=== PATIENT | female | born 1995 | race Caucasian/White ===

== ENCOUNTER 2017-05-26 12:10 | Inpatient (IN) | payer MEDICAID ==
[~2017-05-26] VITALS: Ht 165.1 cm; Wt 67.1 kg
[2017-05-26 13:26] VITALS: Ht 165.1 cm; Wt 67.1 kg
[2017-05-26 13:27] VITALS: BP 126/73; PULSE 77; RESP 18
[2017-05-26] MEDS ORDERED: FER325 PO (15:02)
[2017-05-26] MEDS ORDERED: PRENAT PO (15:02)
--- NOTE | 2017-05-26 16:13 | TRIAGE ---
OB Triage Datetime Report Generated by CPN: 05/26/2017 16:13 Datetime: 05/26/2017 15:55 Stage of : OB Triage Labor Evaluation Frequency: 7-9 Monitor Mode: External Duration (sec)2399: 70 Quality: Mild Pattern: Normal: <= 5 Contractions in 10 Minutes Resting Tone [place]: Relaxed Heart Rate FHR Baseline Rate: 140 Monitor Mode: External US Variability: Moderate 6-25 bpm Accelerations: 15X15 Decelerations: None Category: Category I Pain Assessment Pain Scale: 3 Pain Presence: Intermittent Pain Type: Contraction Pain Location: Abdomen Pain Goal: 4 Pain Relief Measures: Comfort Measures Membrane Status: Intact Datetime: 05/26/2017 15:05 Stage of : OB Triage Labor Evaluation Frequency: 7-9 Monitor Mode: External Duration (sec)2399: 70 Quality: Mild Pattern: Normal: <= 5 Contractions in 10 Minutes Resting Tone [place]: Relaxed Heart Rate FHR Baseline Rate: 135 Monitor Mode: External US Variability: Moderate 6-25 bpm Accelerations: 15X15 Decelerations: None Category: Category I Pain Assessment Pain Scale: 3 Pain Presence: Intermittent Pain Type: Contraction Pain Location: Abdomen Pain Goal: 4 Pain Relief Measures: Comfort Measures (Annotations: FAMILY X 2) Vaginal Exam Dilatation (cms): 3.0 Effacement (%): 100 Station: -1 Exam By: Joanie QUINONES RN Membrane Status: Intact Vaginal Bleeding: Normal Show Cervix, Consistency: Soft Cervix, Position: Posterior Lie 'A': Longitudinal Datetime: 05/26/2017 13:12 Labor Evaluation Frequency: 9-12 Monitor Mode: External Duration (sec)2399: 60-70 Quality: Mild Pattern: Normal: <= 5 Contractions in 10 Minutes Resting Tone [place]: Relaxed Heart Rate FHR Baseline Rate: 135 Monitor Mode: External US Variability: Moderate 6-25 bpm Accelerations: 15X15 Decelerations: None Category: Category I Pain Assessment Pain Scale: 3 Pain Presence: Intermittent Pain Type: Contraction Pain Location: Abdomen Pain Goal: 4 Membrane Status: Intact Datetime: 05/26/2017 12:54 Stage of : OB Triage Maternal Assessment Level of Consciousness: Fully Conscious Labor Evaluation Frequency: 5-10 Monitor Mode: External Duration (sec)2399: 40-70 Quality: Mild Pattern: Normal: <= 5 Contractions in 10 Minutes Resting Tone [place]: Relaxed Heart Rate FHR Baseline Rate: 145 Monitor Mode: External US Variability: Moderate 6-25 bpm Accelerations: 15X15 Decelerations: None Pain Assessment Pain Scale: 3 Pain Presence: Intermittent Pain Type: Contraction Pain Location: Abdomen Pain Goal: 4 Pain Relief Measures: Comfort Measures Membrane Status: Intact Datetime: 05/26/2017 12:34 Stage of : OB Triage Maternal Assessment Level of Consciousness: Fully Conscious DTR's/Clonus: DTRs 2+ Temperature Route: Oral Labor Evaluation Frequency: 8 Monitor Mode: External Duration (sec)2399: 70 Quality: Mild Pattern: Normal: <= 5 Contractions in 10 Minutes Resting Tone [place]: Relaxed Heart Rate FHR Baseline Rate: 140 Monitor Mode: External US Variability: Moderate 6-25 bpm Accelerations: None Decelerations: None Pain Assessment Pain Scale: 3 Pain Presence: Intermittent Pain Type: Contraction Pain Location: Abdomen Pain Goal: 4 Pain Relief Measures: Comfort Measures Vaginal Exam Dilatation (cms): 2.5 Effacement (%): 100 Station: -1 Exam By: Joanie QUINONES RN Membrane Status: Intact Cervix, Consistency: Soft Cervix, Position: Posterior Lie 'A': Longitudinal Datetime: 05/26/2017 12:33 Time of Arrival: 05/26/2017 16:00 EGA: 39.2 Arrived By: Ambulatory Arrived From: Other Unit in Hospital Datetime: 05/26/2017 12:30 Maternal Assessment Level of Consciousness: Fully Conscious DTR's/Clonus: DTRs 2+; No Clonus Headache: Denies Blurred Vision: No Respiratory Effort: Unlabored; Regular Rhythm; Equal Expansion Breath Sounds, Left: Clear and Equal Breath Sounds, Right: Clear and Equal Nausea/Vomiting: Denies RUQ Epigastric Pain: Denies Lower Extremities Edema: None Degree: None Upper Extremities Edema: None Degree: None Facial Edema: None Fall Risk Assessment History of Falling: (0) No Secondary Diagnosis: (0) No Ambulatory Aid: (0) Bedrest/Nurse Assist IV Therapy: (0) No Gait: (0) Normal/Bedrest/Immobile Mental Status: (0) Oriented to Own Ability Fall Score: 0 Fall Risk Score Definition: No Risk: No action required Datetime: 05/26/2017 12:20 Time of Arrival: 05/26/2017 12:10 Arrived By: Ambulatory Arrived From: Home Chief Complaint: IRREGULAR UCS YESTERDAY WHICH BECAME REGULAR AT 0800 TODAY Movement: Present Contractions: Regular Time Contractions Began: 05/26/2017 08:00 Contractions: 5-10 Rupture of Membranes: Denies Vaginal Bleeding: None Vaginal Discharge: Denies Recent Sexual Intercouse: Denies Abdominal Trauma: Not Applicable Patient Complaints: Contractions Initial Plan: LABOR ASSESSMENT Heart Rate FHR Baseline Rate: 145 Monitor Mode: External US Variability: Moderate 6-25 bpm Accelerations: None Decelerations: None Datetime: 05/26/2017 12:18 Monitor Mode: External Monitor Mode: External US Datetime: 05/26/2017 12:13 Stage of : OB Triage
[2017-05-26] MEDS ORDERED: METHYLERGONOVINE 0.2 MG INJ IM PRN (16:30)
[2017-05-26] MEDS ORDERED: LIDOCAINE 1% (MPF) 30 ML INJ INJ PRN (16:30)
[2017-05-26] MEDS ORDERED: BUTORPHANOL 2 MG INJ IV PRN (16:30)
[2017-05-26] MEDS ORDERED: MISOPROSTOL 200 MCG TAB PR PRN (16:30)
[2017-05-26] MEDS ORDERED: OXYTOCIN 30 UNITS/LR 500 ML IV PRN (16:30)
[2017-05-26] MEDS ORDERED: CARBOPROST 250 MCG INJ IM PRN (16:30)
[2017-05-26] MEDS ORDERED: OXYTOCIN 30 UNITS/LR 500 ML IV SCH (16:30)
[2017-05-26] MEDS: LACTATED RINGER'S 1,000 ML IV SCH (16:35)
[2017-05-26 16:51] LABS: BASOPHILS % 0.2 % (0.0-2.0); EOSINOPHILS # 0.1 10^3/ul (0.0-0.5); EOSINOPHILS % 0.6 % (0.0-7.0); HEMATOCRIT 37.3 % (37.0-47.0); HEMOGLOBIN 12.7 g/dl (12.0-16.0); MEAN CORPUSCULAR HEMOGLOBIN 29.7 pg (29.0-33.0); MEAN CORPUSCULAR VOLUME 87.1 fl (72.0-104.0); MEAN PLATELET VOLUME 11.8 fl (7.4-10.4); MONOCYTE # 0.6 10^3/ul (0.3-0.9); MONOCYTES % 4.6 % (0.0-13.0); NEUTROPHIL # 9.5 10^3/ul (1.6-7.5); NEUTROPHILS % 77.9 % (30.0-74.0); PLATELET COUNT 195 10^3/UL (140-415); RED BLOOD COUNT 4.28 10^6/ul (4.20-5.40); RED CELL DISTRIBUTION WIDTH 13.4 % (11.5-14.5); WHITE BLOOD COUNT 12.2 10^3/ul (4.8-10.8)
[2017-05-26 17:07] LABS: INR 0.88; PROTIME 11.9 Sec (12.2-14.2); PT RATIO 0.9
[2017-05-26 17:08] LABS: PARTIAL THROMBOPLASTIN TIME 27.9 Sec (25.0-35.0)
[2017-05-26] MEDS ORDERED: LACTATED RINGER'S 1,000 ML IV ONE (19:05)
[2017-05-26] MEDS ORDERED: DIPHENHYDRAMINE 50 MG INJ IV PRN (19:30)
[2017-05-26] MEDS ORDERED: ONDANSETRON 4 MG INJ IV PRN (19:30)
[2017-05-26] MEDS ORDERED: NALOXONE (0.4 MG/ML) INJ IV PRN (19:30)
[2017-05-26] MEDS ORDERED: ONDANSETRON 4 MG INJ IV ONE (19:30)
[2017-05-26] MEDS ORDERED: morphine 4 MG/ML VIAL IV PRN (19:30)
[2017-05-26] MEDS ORDERED: CITRIC ACID/NA CITRATE 30 ML CUP PO ONE (19:30)
[2017-05-26] MEDS ORDERED: morphine 2 MG INJ IV PRN (19:30)
[2017-05-26] MEDS ORDERED: NALBUPHINE HCL (10 MG/1 ML) INJ IV PRN (19:30)
[2017-05-26] MEDS ORDERED: KETOROLAC 30 MG INJ IV PRN (19:30)
[2017-05-26] MEDS ORDERED: TRIMETHOBENZAMIDE 100 MG/ML VIAL IM PRN (19:30)
[2017-05-26] MEDS ORDERED: LACTATED RINGER'S 1,000 ML IV PRN (20:00)
[2017-05-27] MEDS: FENTAnyl 2MCG/ML-ROPIV 0.2% 100 ML BAG EPI SCH ×2 (02:33→07:40)
[2017-05-27] MEDS: LACTATED RINGER'S 1,000 ML IV SCH (03:05)
[2017-05-27] MEDS: OXYTOCIN 30 UNITS/LR 500 ML IV SCH ×4 (09:55→17:17)
--- NOTE | 2017-05-27 11:34 | DELSUM ---
Delivery Summary A-C Datetime Report Generated by CPN: 05/27/2017 11:33 DELIVERY PERSONNEL Control Inspector: Erin Carter MATERNAL INFORMATION Delivery Anesthesia: Epidural Medications in Delivery: 30 UNITS PITOCIN IN 500 ML LR Estimated Blood Loss (ml): 300 Placenta Cultured: No Maternal Complications: None LABOR SUMMARY EDC: 05/31/2017 00:00 No. Babies in Womb: 1 Attempted: No Labor Anesthesia: Epidural LABOR INFORMATION Reason for Induction: Not Applicable Onset of Labor: 05/26/2017 15:05 Complete Dilatation: 05/27/2017 07:30 Oxytocin: N/A Group B Beta Strep: Negative Antibiotics # of Doses: 0 Steroids Given: None Reason Steroids Not Administered: Not Applicable MEMBRANES Membranes Rupture Method: Spontaneous Rupture of Membranes: 05/27/2017 02:21 Length of Rupture (hr): 7.58 Amniotic Fluid Color: Clear Amniotic Fluid Amount: Moderate Amniotic Fluid Odor: None STAGES OF LABOR Stage 1 hr: 16 Stage 1 min: 25 Stage 2 hr: 2 Stage 2 min: 26 Stage 3 hr: 0 Stage 3 min: 4 Total Time in Labor hr: 18 Total Time in Labor min: 55 VAGINAL DELIVERY Episiotomy: None Laceration Extension: First Degree Laceration Type: Vaginal Laceration Repair: Yes Initial Vag Sponge Count: 10 Final Vag Sponge Count: 10 Initial Vag Sharps Count: 2 Final Vag Sharps Count: 2 Sponge Count Correct: Yes Sharps Count Correct: Yes BABY A INFORMATION Delivery Date/Time: 05/27/2017 09:56 Method of Delivery: Vaginal Born in Route : No : N/A Forceps: N/A Vacuum Extraction: N/A Shoulder Dystocia : N/A SHOULDER DYSTOCIA BABY A Infant Delivery Date/Time: 05/27/2017 09:56 PRESENTATION/POSITION BABY A Presentation: Cephalic Cephalic Presentation: Vertex Vertex Position: Left Occipital Anterior Breech Presentation: N/A PLACENTA INFORMATION BABY A Placenta Delivery Time : 05/27/2017 10:00 Placenta Method of Delivery: Spontaneous Placenta Status: Delivered SCORES BABY A Heart Rate 1 min: >100 bpm Resp Effort 1 min: Good Cry Reflex Irritability 1 min: Cough/Sneeze/Pulls Away Muscle Tone 1 min: Active Motion Color 1 min: Body [place], Extremit Blue Resuscitation Effort 1 min: Tactile Stimulation SCORE 1 MIN: 9 Heart Rate 5 min: >100 bpm Resp Effort 5 min: Good Cry Reflex Irritability 5 min: Cough/Sneeze/Pulls Away Muscle Tone 5 min: Active Motion Color 5 min: Body [place], Extremit Blue Resuscitation Effort 5 min: Tactile Stimulation SCORE 5 MIN: 9 INFANT INFORMATION BABY A Gestational Age at Delivery: 39.3 Gestational Status: Full Term- 39- 40.6 Weeks Infant Outcome : Liveborn Infant Condition : Stable Sex: Female IDENTIFICATION/MEDS BABY A ID Band Number: [id number] ID Band Location: Right Leg; Left Arm Sensor Applied: Yes Sensor Number: [id number] Sensor Location : Cord Clamp Vitamin K Given : Not Given Erythromycin Given: Not Given WEIGHT/LENGTH BABY A Birthweight (gm): 2070 Weight (lb): 4 Weight (oz): 9 Infant Length (in): 20.00 Infant Length (cm): 50.80 CORD INFORMATION BABY A No. Cord Vessels: 3 Nuchal Cord : Around Neck x1, Loose Cord Blood Taken: Yes Suction: Mouth; Nose ASSESSMENT BABY A Infant Complications: None Physical Findings at Delivery: Within Normal Limits Respirations: Appears Normal Concrete Hopper Operator/ALS Called : No Transferred To: Remains with Mother
--- NOTE | 2017-05-27 11:39 | LDN ---
Date/Time of Note Date/Time of Note DATE: 05/27/17 TIME: 11:37 Delivery Summary pt pushed and head delivered. tight CAN and cut over perineum. infant then delivered without any complications Placenta Delivered: Spontaneously Meconium: none Laceration repair: vaginal primary with chromic suture Anesthesia type: Epidural Estimated blood loss: 300 Sponge & Needle done & correct: Yes All needle counts correct: Yes Any foreign bodies felt in the: No Problems: Infant Delivery Information Suctioning Nose & mouth suctioned at umu: Yes Delee suction performed: Yes Umbilical Cord Umbilical cord with: 3 Vessels Cord presentations: nuchal cord Nuchal cord present X: 1 Cord Blood was obtained: Yes STEFFANY DIAZ MD May 27, 2017 11:39
[2017-05-27 11:50] VITALS: BP 120/65; PULSE 70; RESP 16
[2017-05-27] MEDS: LACTATED RINGER'S 1,000 ML IV* SCH ×2 (13:17→21:17)
[2017-05-27] MEDS ORDERED: ACETAMINOPHEN 325 MG TAB PO PRN (13:30)
[2017-05-27] MEDS ORDERED: DIBUCAINE 1% 30 GM OINT TOP PRN (13:30)
[2017-05-27] MEDS ORDERED: METHYLERGONOVINE 0.2 MG INJ IM PRN (13:30)
[2017-05-27] MEDS ORDERED: WITCH HAZEL/GLYCERIN PAD PR PRN (13:30)
[2017-05-27] MEDS ORDERED: LANOLIN 7 GM TUBE TOP PRN (13:30)
[2017-05-27] MEDS ORDERED: BENZOCAINE 20% 56 ML SPRAY TOP PRN (13:30)
[2017-05-27] MEDS ORDERED: MISOPROSTOL 200 MCG TAB PR PRN (13:30)
[2017-05-27] MEDS ORDERED: CARBOPROST 250 MCG INJ IM PRN (13:30)
[2017-05-27] MEDS ORDERED: OXYTOCIN 30 UNITS/LR 500 ML IV PRN (13:30)
[2017-05-27] MEDS ORDERED: OXYCODONE/ASPIRIN (4.88/325) TAB PO PRN ×2 (13:30)
[2017-05-27] MEDS ORDERED: METHYLERGONOVINE 0.2 MG TAB PO PRN (13:30)
[2017-05-27] MEDS ORDERED: SENNA/DOCUSATE NA (8.6MG/50MG) TAB PO PRN (13:30)
[2017-05-27 17:00] VITALS: BP 123/57; PULSE 70; RESP 16
[2017-05-27] MEDS: IBUPROFEN 600 MG TAB PO SCH ×2 (18:00→23:36)
[2017-05-27 20:30] VITALS: BP 120/56; PULSE 74; RESP 18
[2017-05-28 00:15] VITALS: BP 118/60; PULSE 70; RESP 18
[2017-05-28 04:00] VITALS: BP 114/73; PULSE 71; RESP 17
[2017-05-28] MEDS: IBUPROFEN 600 MG TAB PO SCH ×4 (05:55→23:52)
[2017-05-28 08:15] LABS: BASOPHILS % 0.2 % (0.0-2.0); EOSINOPHILS # 0.2 10^3/ul (0.0-0.5); HEMATOCRIT 30.2 % (37.0-47.0); HEMOGLOBIN 10.1 g/dl (12.0-16.0); LYMPHOCYTES # 2.3 10^3/ul (0.8-2.9); LYMPHOCYTES % 18.9 % (18.0-55.0); MEAN CORPUSCULAR HEMOGLOBIN 29.3 pg (29.0-33.0); MEAN CORPUSCULAR HGB CONC 33.4 g/dl (32.0-37.0); MEAN CORPUSCULAR VOLUME 87.5 fl (72.0-104.0); MEAN PLATELET VOLUME 11.1 fl (7.4-10.4); MONOCYTE # 0.8 10^3/ul (0.3-0.9); MONOCYTES % 6.5 % (0.0-13.0); NEUTROPHIL # 8.8 10^3/ul (1.6-7.5); NEUTROPHILS % 71.7 % (30.0-74.0); PLATELET COUNT 142 10^3/UL (140-415); RED BLOOD COUNT 3.45 10^6/ul (4.20-5.40); RED CELL DISTRIBUTION WIDTH 13.8 % (11.5-14.5); WHITE BLOOD COUNT 12.3 10^3/ul (4.8-10.8)
[2017-05-28 08:45] VITALS: BP 100/56; PULSE 62; RESP 18
--- NOTE | 2017-05-28 10:34 | PN ---
Date/Time of Note Date/Time of Note DATE: 05/28/17 TIME: 10:33 OB Subjective Subjective Subjective No complaints. OB Objective Objective Objective Gen: NAD Abd: FF OB Assessment/Plan Other Assessment: PPD1 s/p Other plan: Continue care. Anticipate discharge home tomorrow. AMELIA ELIZONDO May 28, 2017 10:34
[2017-05-28 16:00] VITALS: BP 114/70; PULSE 70; RESP 18
[2017-05-28 20:05] VITALS: BP 121/62; PULSE 88; RESP 17
[2017-05-29 04:20] VITALS: BP 117/56; PULSE 72; RESP 18
[2017-05-29] MEDS: IBUPROFEN 600 MG TAB PO SCH ×2 (05:43→11:38)
[2017-05-29 08:45] VITALS: BP 125/60; RESP 18
[2017-05-29] MEDS ORDERED: DIPHTH/TET/ACEL PERTUSS (ADULT) 0.5 ML VIAL IM* ONE (09:00)
--- NOTE | 2017-05-29 10:45 | PD.PPDC ---
SHIPPING AND RECEIVING ASSISTANT Discharge Instruction Condition Patient Condition: Good Diet Diet: Resume Regular Diet Activity/Restrictions Activity: Normal Activity May Shower Restrictions: No Sexual Activity Nothing in the Vagina No [place] No Tampons, douche Follow-up Follow-up with Physician: 6, Week/Weeks Return to clinic for FIELD SALES CONSULTANT Instructions: Fever greater than 101 Chills Worsening abdominal pain Excessive Vaginal Bleeding OB Instructions: Breast Tenderness Depression ROXIE PHELAN MD May 29, 2017 10:45
--- NOTE | 2017-05-29 10:45 | DS ---
Date/Time of Note Date/Time of Note DATE: 05/29/17 TIME: 10:42 Obstetrical Discharge Record Final Diagnosis Final Diagnosis: Term delivered Vaginal Delivery Obstetrical Delivery: Spontaneous, Laceration, Repaired Complications Infection Augmentation: No Induction: No Condition on Discharge Physical Assessment Last Vitals: T= 97.9 BP 117/56 Voiding: Yes Bowel Movement: Yes Breast: Filling Fundus: Firm Calf Tenderness: No Patient Condition: Good ROXIE PHELAN MD May 29, 2017 10:45
== END 2017-05-29 14:54 | disposition home or self-care (01) | DRG 775 ==
LOC: OBT 12:10 → L-D 12:12 → OBT 15:50 → L-D 15:50 → PP1 05-27 11:57
PROVIDERS: ADMIT Obstetrics & Gynecology; ATTEND Obstetrics & Gynecology
PROC: 10E0XZZ Delivery of Products of Conception, External Approach (ICD-10-PCS; principal; 2017-05-29)
PROC: 0HQ9XZZ Repair Perineum Skin, External Approach (ICD-10-PCS; 2017-05-29)
DX: O70.0 First degree perineal laceration during delivery (principal); O69.81X0 Labor and delivery complicated by cord around neck, without compression, not applicable or unspecified; Z37.0 Single live birth; Z3A.39 39 weeks gestation of pregnancy
CPT/HCPCS: 62319; 85025; 85610; 85730; 86592; 86900; 86901; 87340; 90715; G0463; J1200; J2210; J2405; J2590; J3010; J7120